=== PATIENT | female | born 1990 | race Caucasian/White ===

== ENCOUNTER → 2020-07-18 | Outpatient (CLI) | payer BC, OTHER ==
[~2020-07-18] MED LIST: COLACE 100MG C100 MG PO; IBUPROFEN600 MG PO; LORTAB 5-325 M1 EACH PO; NORCO 5-325 TA1 EACH PO; XULANE PATCH1 EACH TD; [UNRECOGNIZED DRUG - OTHER] PO
[2020-07-18 08:39] LABS: HEMOGLOBIN 13.4 gm/dl (12.3-15.3); RED BLOOD COUNT 4.2 M/UL (4.00-5.10); WHITE BLOOD COUNT 3.7 K/UL (4.5-11.0)
[2020-07-18 09:04] LABS: BUN/CREATININE RATIO 19 (0-10)
[2020-07-19 08:14] LABS: ESTRADIOL 41.1 pg/mL (.); PROGESTERONE 0.7 ng/mL (.); THYROXINE (T4) 5.8 ug/dL (4.5-12.0); TRIIODOTHYRONINE (T3) 131 ng/dL (71-180); VITAMIN D, 25-HYDROXY 30.5 ng/mL (30.0-100.0)
[2020-07-22 14:14] LABS: TESTOSTERONE, SERUM 9 ng/dL (8-60)
== END ==
LOC: LAB 07:43
PROVIDERS: Nurse Practitioner Family
DX: E55.9 Vitamin D deficiency, unspecified (principal); F41.9 Anxiety disorder, unspecified; F32.9 Major depressive disorder, single episode, unspecified; Z79.899 Other long term (current) drug therapy
CPT/HCPCS: 36415; 80053; 80061; 82607; 82670; 82746; 83036; 84144; 84402; 84403; 84436; 84443; 84480; 85027

== ENCOUNTER → 2020-09-18 | Outpatient (CLI) | payer BC ==
[2020-09-19 18:12] LABS: SARS COV-2 IGM AB Negative (Negative)
== END ==
LOC: LAB 07:53
PROVIDERS: Nurse Practitioner Family
DX: Z09 Encounter for follow-up examination after completed treatment for conditions other than malignant neoplasm (principal); Z86.16 Personal history of COVID-19
CPT/HCPCS: 36415; 86769

== ENCOUNTER → 2021-11-02 | Outpatient (CLI) | payer BC ==
[2021-11-02 08:47] LABS: HEMOGLOBIN 14.1 gm/dl (12.3-15.3); RED BLOOD COUNT 4.42 M/UL (4.00-5.10); WHITE BLOOD COUNT 5.2 K/UL (4.5-11.0)
[2021-11-02 09:18] LABS: BUN/CREATININE RATIO 17 (0-10)
== END ==
LOC: LAB 08:27
PROVIDERS: Nurse Practitioner Family
DX: R63.5 Abnormal weight gain (principal)
CPT/HCPCS: 36415; 80053; 80061; 82570; 82607; 83036; 84156; 84439; 84443; 85025